=== PATIENT | male | born 1970 | race Caucasian/White ===

== ENCOUNTER 2018-06-09 09:38 | Emergency (ER) | payer BC ==
[2018-06-09] MEDS ORDERED: RABIES VACCINE 2.5 UNIT SYRINGE IM ONE (09:57)
--- NOTE | 2018-06-09 10:01 | ED Physician Documentation ---
History of Present Illness - Stated complaint Stated Complaint: RABIES VACCINATION - Chief complaint Chief Complaint: General - Additonal information Additional information: hx from pt healthy 48 male scratched by stray dog in [place] 06/02 was seen by medical there per paperwork level 2 exposure and rabies vaccine series was recommended he is here for dose 3 of ( Jun 02, , , and Jul 02) tdap UTD also has URI sx after plane travel - cough congestion, no leg swelling Review of Systems Constitutional: denies: Fever Ears: reports: Ear pain Nose: reports: Congestion Respiratory: reports: Cough Immunocompromised: denies: Immunocompromised PD PAST MEDICAL HISTORY - Present Medications Home Medications: Ambulatory Orders Medication Instructions Recorded Confirmed Benzonatate [Tessalon Perle] 100 mg PO TID PRN #20 capsule 06/09/18 Fluticasone [Flonase] 1 sprays MAYDA BID PRN #1 bottle 06/09/18 - Allergies Allergies/Adverse Reactions: Allergies Allergy/AdvReac Type Severity Reaction Status Date / Time No Known Drug Allergies Allergy Verified 06/09/18 09:45 PD ED PE NORMAL - Vitals Vital signs reviewed: Yes - General General: Alert and oriented X 3 - HEENT HEENT: Moist mucous membranes, Pharynx benign. No: Ears normal (fracisco TM tightly retracted, no purulent fluid) - Cardiac Cardiac: RRR - Respiratory Respiratory: No respiratory distress, Clear bilaterally - Abdomen Abdomen: Soft, Non tender - Derm Derm: Other (pt states the scratch has totally healed and there is nothing to see) - Extremities Extremities: No edema, No calf tenderness / cord - Neuro Neuro: Alert and oriented X 3 Results - Vitals Vitals: Vital Signs - 24 hr 06/09/18 09:45 Temperature 36.7 C Heart Rate 66 Respiratory 16 Rate Blood Pressure 123/86 H O2 Saturation 100 Oxygen O2 Source Room air Departure - Departure Disposition: 01 Home, Self Care Clinical Impression: Rabies, need for prophylactic vaccination against URI (upper respiratory infection) Qualifiers: URI type: unspecified viral URI Qualified Code(s): J06.9 - Acute upper respiratory infection, unspecified Condition: Good Instructions: Rabies Vaccine suspension for injection, ED URI Viral Prescriptions: Benzonatate [Tessalon Perle] 100 mg PO TID PRN #20 capsule PRN Reason: Cough Fluticasone [Flonase] 1 sprays MAYDA BID PRN #1 bottle PRN Reason: congestion Comments: Continue with the rabies series on 06/16 and 07/02 as planned
[2018-06-09 10:46] VITALS: BP 108/82
== END 2018-06-09 10:46 | disposition home or self-care (01) ==
LOC: ED 09:38
DX: Z29.14 Encounter for prophylactic rabies immune globulin (principal); Z20.3 Contact with and (suspected) exposure to rabies; J06.9 Acute upper respiratory infection, unspecified
CPT/HCPCS: 90471; 99283

== ENCOUNTER 2018-06-16 09:28 | Emergency (ER) | payer BC, OTHER ==
[2018-06-16] MEDS ORDERED: RABIES VACCINE 2.5 UNIT SYRINGE IM ONE (10:25)
--- NOTE | 2018-06-16 10:28 | ED Physician Documentation ---
PD HPI ANIMAL BITE - Stated complaint Stated Complaint: F/U RABIES - Chief complaint Chief Complaint: Ext Problem - History obtained from History obtained from: Patient - History of Present Illness Location of injury(ies): Other (he had prior dog bite in [place] and was at risk for rabies. Getting rabies vaccine series. He had been given info on 5 shot series from there. He is here for his 4th in the series.) Details of the event: Dog, Wild animal, Immunization unknown. No: Animal can be observed Timing - onset: How many weeks ago (2) Timing - details: Abrupt onset Recently seen: Emergency Dept (seen a week ago for 3rd rabies shot. returned for next one.) Review of Systems Constitutional: denies: Fever, Chills, Myalgias GI: denies: Nausea, Vomiting Neurologic: denies: Generalized weakness, Confused, Headache PD PAST MEDICAL HISTORY - Past Medical History Cardiovascular: None Respiratory: None Neuro: None Endocrine/Autoimmune: None - Past Surgical History Past Surgical History: Yes - Present Medications Home Medications: Ambulatory Orders Medication Instructions Recorded Confirmed Benzonatate [Tessalon Perle] 100 mg PO TID PRN #20 capsule 06/09/18 06/16/18 Fluticasone [Flonase] 1 sprays MAYDA BID PRN #1 bottle 06/09/18 06/16/18 - Allergies Allergies/Adverse Reactions: Allergies Allergy/AdvReac Type Severity Reaction Status Date / Time No Known Drug Allergies Allergy Verified 06/16/18 09:38 - Social History Does the pt smoke?: No Smoking Status: Never smoker PD ED PE NORMAL - Vitals Vital signs reviewed: Yes - General General: Alert and oriented X 3, No acute distress, Well developed/nourished Results - Vitals Vitals: Vital Signs - 24 hr 06/16/18 06/16/18 09:36 10:39 Temperature 36.6 C 36.3 C L Heart Rate 57 L 58 L Respiratory 18 20 Rate Blood Pressure 125/83 H 119/83 H O2 Saturation 100 100 Oxygen O2 Source Room air PD MEDICAL DECISION MAKING - ED course Complexity details: d/w patient (we discussed the CDC newest recommendations from couple years ago that has 4 shot series as the standard. So this would be his last vaccine in this series today and did not need anymore. ) Departure - Departure Disposition: Home, Self Care Clinical Impression: Rabies exposure, Need for immunization against rabies Condition: Stable Record reviewed to determine appropriate education?: Yes Comments: Following the current CDC rabies vaccine guidelines, they currently only suggest for vaccinations in the series and so this would be your last of them at this point. No further treatment needed. Follow-up as needed with your primary care. Discharge Date/Time: 06/16/18 10:42
[2018-06-16 10:41] VITALS: BP 119/83
== END 2018-06-16 10:42 | disposition home or self-care (01) ==
LOC: ED 09:28
DX: Z29.14 Encounter for prophylactic rabies immune globulin (principal); Z20.3 Contact with and (suspected) exposure to rabies
CPT/HCPCS: 90471; 99281; 99283

== ENCOUNTER 2023-07-28 02:38 | Emergency (ER) | payer BC, OTHER ==
[2023-07-28] MEDS: SOAP SUDS ENEMA 1 EACH RC ONE (03:38)
[2023-07-28] MEDS: MORPHINE 2 MG/ML CARPUJECT IVP STA (05:09)
[2023-07-28 05:10] LABS: BASOPHILS % (AUTO) 0.2 %; EOSINOPHILS % (AUTO) 0.2 %; HCT - HEMATOCRIT 40.9 % (42.0-52.0); LYMPHOCYTES # (AUTO) 1.7 10^3/uL (1.5-3.5); LYMPHOCYTES % (AUTO) 14.4 %; MEAN CORPUSCULAR HGB CONC 34.2 g/dL (32.0-36.0); MEAN CORPUSCULAR VOLUME 90.5 fL (80.0-94.0); MEAN PLATELET VOLUME 8.7 fL (7.4-11.4); MONOCYTES # (AUTO) 0.5 10^3/uL (0.0-1.0); MONOCYTES % (AUTO) 4.3 %; NEUTROPHILS # (AUTO) 9.2 10^3/uL (1.5-6.6); NEUTROPHILS % (AUTO) 80.6 %; PLT - PLATELET COUNT 235 10^3/uL (130-450); RED BLOOD COUNT 4.52 10^6/uL (4.70-6.10); RED CELL DISTRIBUTION WIDTH 12.2 % (12.0-15.0); WHITE BLOOD COUNT 11.5 x10^3/uL (4.8-10.8)
[2023-07-28 05:24] LABS: ALBUMIN 4.6 g/dL (3.2-5.5); ALBUMIN/GLOBULIN RATIO 1.7 (1.0-2.2); BILIRUBIN,TOTAL 0.5 mg/dL (0.2-1.0); CALCIUM 9.7 mg/dL (8.5-10.3); CREATININE 0.9 mg/dL (0.6-1.3); POTASSIUM 3.8 mmol/L (3.5-4.5); TOTAL PROTEIN 7.3 g/dL (6.4-8.9)
[2023-07-28] MEDS ORDERED: IOVERSOL 320 100 ML VIAL IVP ONE (05:29)
--- NOTE | 2023-07-28 05:29 | ED Physician Documentation ---
PD HPI ABD PAIN - Stated complaint Stated Complaint: ABD PX - Chief complaint Chief Complaint: Abd Pain - History obtained from History obtained from: Patient - Additional information Additional information: Patient is a 53-year-old male with no significant past medical history presenting for evaluation of feeling some lower abdominal discomfort and constipation. Patient states he has not had a bowel movement in about 4 days. He tried an [id number] enema this evening without any improvement and reports having some lower abdominal sharp cramping pain. He did have some loose watery stool but no significant stool output. No nausea or vomiting. No fever. Denies history of abdominal surgeries. Has had intermittent issues with constipation in the past.Denies dysuria. No blood in the stools. Has had colonoscopies in the past. Review of Systems Constitutional: denies: Fever Cardiac: denies: Chest pain / pressure Respiratory: denies: Dyspnea GI: reports: Abdominal Pain, Constipation. denies: Nausea, Vomiting, Bloody / black stool : denies: Dysuria Musculoskeletal: denies: Back pain PD PAST MEDICAL HISTORY - Past Medical History Past Medical History: No Cardiovascular: None Respiratory: None Neuro: None Endocrine/Autoimmune: None - Past Surgical History Past Surgical History: Yes General: Appendectomy - Present Medications Home Medications: Ambulatory Orders Medication Instructions Recorded Confirmed Tamsulosin [Flomax] 0.4 mg PO DAILY #14 cap 07/28/23 - Allergies Allergies/Adverse Reactions: Allergies Allergy/AdvReac Type Severity Reaction Status Date / Time No Known Drug Allergies Allergy Verified 07/28/23 02:50 - Social History Does the pt smoke?: No Smoking Status: Never smoker Does the pt drink ETOH?: No Does the pt have substance abuse?: No PD ED PE NORMAL - General General: Alert and oriented X 3, No acute distress, Well developed/nourished - HEENT HEENT: Atraumatic, Moist mucous membranes, Pharynx benign - Neck Neck: Supple, no meningeal sign - Cardiac Cardiac: RRR, Strong equal pulses - Respiratory Respiratory: No respiratory distress, Clear bilaterally - Abdomen Abdomen: Normal bowel sounds, Soft, Non tender, Other - 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), Other (No testicular tenderness/swelling) - Rectal 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; 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; soft solid stool in rectum; normal stool color) Results - Vitals Vitals: Vital Signs - 24 hr 07/28/23 07/28/23 07/28/23 02:46 06:29 08:04 Temperature 36.4 C L Heart Rate 70 76 60 Respiratory 17 16 18 Rate Blood Pressure 122/85 H 111/73 117/77 O2 Saturation 100 98 100 Oxygen O2 Source Room air - Labs Labs: Laboratory Tests 07/28/23 07/28/23 07/28/23 05:07 05:07 06:00 WBC 11.5 H RBC 4.52 L Hgb 14.0 Hct 40.9 L MCV 90.5 MCH 31.0 MCHC 34.2 RDW 12.2 Plt Count 235 MPV 8.7 Neut # (Auto) 9.2 H Lymph # (Auto) 1.7 Reagan # (Auto) 0.5 Eos # (Auto) 0.0 Baso # (Auto) 0.0 Absolute Nucleated RBC 0.00 Nucleated RBC % 0.0 Sodium 138 Potassium 3.8 Chloride 105 Carbon Dioxide 26 Anion Gap 7.0 BUN 12 Creatinine 0.9 Estimated GFR (MDRD) 89 Glucose 134 H Calcium 9.7 Total Bilirubin 0.5 AST 35 ALT 40 Alkaline Phosphatase 58 Total Protein 7.3 Albumin 4.6 Globulin 2.7 Albumin/Globulin Ratio 1.7 Lipase 33 Urine Color YELLOW Urine Clarity CLEAR Urine pH 6.0 Ur Specific Mathews 1.015 Urine Protein NEGATIVE Urine Glucose (UA) NEGATIVE Urine Ketones NEGATIVE Urine Occult Blood NEGATIVE Urine Nitrite NEGATIVE Urine Bilirubin NEGATIVE Urine Urobilinogen 0.2 (NORMAL) Ur Leukocyte Esterase NEGATIVE Ur Microscopic Review NOT INDICATED Urine Culture Comments NOT INDICATED PD Medical Decision Making - ED course Complexity details: reviewed results, re-evaluated patient, d/w patient, d/w family ED course: Pt is a 53 yo M presenting for evaluation of constipation. Tried enema at home without improvement. Soft solid stool in rectum on exam. Soap suds enema here with no significant output and pt reporting increased abdominal pain. Now with lower abdominal tenderness so labs and imaging obtained. No significant findings on labs. Pain controlled with IV morphine and dilaudid. CT findings of fecal impaction as well as distended bladder. On further discussion, pt admits to recently having issues with urination. Has been busy at home with twin 9 months olds and reports decreased toileting. Bladder scan with 1400ml. Recommend davila catheter which pt agreeable to and then plan for mineral enema. Hope is that pt will be able to relieve fecal impaction once bladder is decompressed. Pt gave permission for me to update his partner who is a former hospitalist here via telephone. Pt signed out to Dr. Henning at shift change pending re-evaluation after davila and enema. Departure - Departure Clinical Impression: Fecal impaction, Urinary retention Condition: Stable Instructions: ED Constipation, ED Retention Urinary Male Follow-Up: Grover Carreno MD [Provider Admit Priv/Credential] - Within 1 week (For catheter removal) Prescriptions: Tamsulosin [Flomax] 0.4 mg PO DAILY #14 cap Comments: You were found to have urinary retention which is the situation that occurs when your bladder is not emptying fully on its own. I suspect that this was causing your pain as well as leading to difficulties with having a bowel movement. We have placed a catheter which is taken for approximately 1 week. Please follow- up with Dr. Grover Carreno who is a local urologist later this week to have the catheter removed. In the meanwhile have sent a prescription for Flomax which is a medication that will help the bladder recover to [facility] in [place]. Forms: PCP List
[2023-07-28] MEDS: IOVERSOL 320 100 ML VIAL IVP ONE (06:02)
[2023-07-28] MEDS: HYDROmorphone 1 MG/ML CARPUJECT IVP STA (06:18)
[2023-07-28 06:39] LABS: BILIRUBIN,URINE NEGATIVE (NEGATIVE); GLUCOSE, URINE (UA) NEGATIVE (NEGATIVE); KETONES,URINE (UA) NEGATIVE (NEGATIVE); LEUKOCYTE ESTERASE, URINE NEGATIVE (NEGATIVE); NITRITE,URINE NEGATIVE (NEGATIVE); OCCULT BLOOD,URINE NEGATIVE (NEGATIVE); PROTEIN,URINE NEGATIVE (NEGATIVE); UROBILINOGEN,URINE 0.2 (NORMAL) E.U./dL (NORMAL)
[2023-07-28 06:40] LABS: CLARITY,URINE CLEAR (CLEAR)
[2023-07-28] MEDS: MINERAL OIL ENEMA 133 ML BOTTLE RC STA (07:52)
[2023-07-28 08:11] VITALS: O2SAT 100
[2023-07-28] MEDS: DOCUSATE SODIUM 100 MG CAPSULE PO STA (08:15)
[2023-07-28] MEDS: LACTULOSE 10 GM /15 ML UDC PO STA (08:15)
--- NOTE | 2023-07-28 08:39 | CT Report ---
PROCEDURE: Abdomen/Pelvis W INDICATIONS: lower abd pain CONTRAST: 100 ML OPTI 320 TECHNIQUE: After the administration of intravenous contrast, a CT scan of the abdomen and pelvis was performed. Images were recorded and evaluated at appropriate window settings. Reformats: coronal and sagittal. F or radiation dose reduction, the following was used: automated exposure control, adjustment of mA and /or kV according to patient size. COMPARISON: None. FINDINGS: Image quality: Diagnostic. Lower chest: Unremarkable. Liver: Hepatic steatosis. Gallbladder and biliary tree: No radiopaque stones or wall thickening. No biliary dilation. Spleen: No splenomegaly. Pancreas: No pancreatic ductal dilation. Adrenals: No adrenal nodule. Kidneys and ureters: No hydronephrosis. No renal cystic lesion which requires follow up. No solid mas s. Minimal prominence of the bilateral renal pelvises. Stomach, bowel and peritoneum: There is a large amount of fecal material noted in the rectum. Large a mount of fecal material seen scattered throughout the colon. There is circumferential narrowing at th e rectosigmoid junction. No evidence for small bowel obstruction. Appendix is not visualized but no s econdary findings for acute appendicitis. Lymph nodes: No central or retroperitoneal adenopathy. Vessels: No infrarenal aortic aneurysm. Scattered atherosclerotic calcifications. PELVIS Reproductive organs: Unremarkable. Bladder: There is marked distention of the urinary bladder without wall thickening or perivesicular i nflammation. No evidence to suggest intraluminal mass or stone. Pelvic lymph nodes: No pelvic adenopathy by size criteria. Bones: No aggressive osseous abnormality. No acute compression fracture. Other: No significant ventral or inguinal hernia. IMPRESSION: Findings consistent with fecal impaction. There is circumferential narrowing of the proximal rectum n ear the rectosigmoid junction which may represent proctitis. Recommend correlation with digital recta l examination/physical exam to exclude possible underlying mass. Additionally, large amount of fecal material seen throughout the colon consistent with constipation. Marked urinary bladder distention without evidence for obstructive uropathy. No significant discrepancy with initial interpretation by overnight radiologist. Reviewed by: Mahendra Nicholson MD on 07/28/2023 8:38 AM [facility] Approved by: Mahendra Nicholson MD on 07/28/2023 8:38 AM PST Station ID: [id number]
--- NOTE | 2023-07-28 08:51 | ED Physician Documentation ---
ED Addendum - Addendum Addendum: 07/28/23 08:48 The patient had the Rivera catheter placed and had 1500 mL of urine out. He was having less cramping pain in the lower abdomen. He did not have much of a stool out after that. He was given a repeat enema. The prior provider had said the rectal exam showed some stool that was soft in the vault. I did not repeat the rectal exam. I did give some oral stool softener and laxative to complement the enema. At this point would keep working on stool softening and output but can be continued at home. The majority of symptoms were likely of the stretching of the bladder and this should be improved. The instructions written for him I would concur with and that would keep the Rivera catheter in for more like a week as the bladder would have gotten over distended and the muscle stretched and he needs time to regain tone. Following up with urology would be appropriate. We can add a daily stool softener in addition to the prescribed Flomax. Disposition: The patient discharged home in stable condition. Diagnoses: 1. Lower abdominal pain/cramping 2. Constipation with fecal impaction 3. Urinary retention acute with distended bladder
[2023-07-28 09:50] VITALS: BP 111/75
== END 2023-07-28 09:42 | disposition home or self-care (01) ==
LOC: ED 02:38
DX: K56.41 Fecal impaction (principal); R33.9 Retention of urine, unspecified
CPT/HCPCS: 36415; 51702; 51798; 74177; 80053; 81003; 83690; 85025; 96374; 96375; 99284; A9270; J1170; Q9967; 81001; 87086

== ENCOUNTER 2023-08-04 12:48 | Emergency (ER) | payer BC, OTHER ==
[2023-08-04 13:06] VITALS: O2SAT 98
[2023-08-04 13:15] LABS: BILIRUBIN,URINE NEGATIVE (NEGATIVE); GLUCOSE, URINE (UA) NEGATIVE (NEGATIVE); KETONES,URINE (UA) 40 mg/dL (NEGATIVE); LEUKOCYTE ESTERASE, URINE MODERATE (NEGATIVE); NITRITE,URINE NEGATIVE (NEGATIVE); OCCULT BLOOD,URINE SMALL (NEGATIVE); PROTEIN,URINE TRACE mg/dL (NEGATIVE); UROBILINOGEN,URINE 1 (NORMAL) E.U./dL (NORMAL)
[2023-08-04 13:17] LABS: CLARITY,URINE SL. CLOUDY (CLEAR)
[2023-08-04 13:21] LABS: BACTERIA,URINE Moderate /HPF (None Seen); SQUAMOUS EPITHELIAL CELL,UR RARE Squamous (<= Few); WBC,URINE >25 /HPF (0-3)
[2023-08-04 13:29] LABS: BASOPHILS % (AUTO) 0.2 %; EOSINOPHILS # (AUTO) 0.1 10^3/uL (0.0-0.7); EOSINOPHILS % (AUTO) 0.8 %; HGB - HEMOGLOBIN 13.2 g/dL (14.0-18.0); LYMPHOCYTES # (AUTO) 0.6 10^3/uL (1.5-3.5); LYMPHOCYTES % (AUTO) 5.1 %; MEAN CORPUSCULAR HEMOGLOBIN 32.5 pg (27.0-31.0); MEAN CORPUSCULAR HGB CONC 35.7 g/dL (32.0-36.0); MEAN CORPUSCULAR VOLUME 91.1 fL (80.0-94.0); MEAN PLATELET VOLUME 8.7 fL (7.4-11.4); MONOCYTES # (AUTO) 0.8 10^3/uL (0.0-1.0); MONOCYTES % (AUTO) 6.3 %; NEUTROPHILS # (AUTO) 10.9 10^3/uL (1.5-6.6); NEUTROPHILS % (AUTO) 87.2 %; PLT - PLATELET COUNT 183 10^3/uL (130-450); RED BLOOD COUNT 4.06 10^6/uL (4.70-6.10); RED CELL DISTRIBUTION WIDTH 12.3 % (12.0-15.0); WHITE BLOOD COUNT 12.5 x10^3/uL (4.8-10.8)
[2023-08-04 13:42] LABS: ALBUMIN/GLOBULIN RATIO 1.4 (1.0-2.2); BILIRUBIN,TOTAL 1.4 mg/dL (0.2-1.0); CALCIUM 9.8 mg/dL (8.5-10.3); CREATININE 1.1 mg/dL (0.6-1.3); POTASSIUM 3.9 mmol/L (3.5-4.5); TOTAL PROTEIN 6.9 g/dL (6.4-8.9)
--- NOTE | 2023-08-04 14:01 | ED Physician Documentation ---
History of Present Illness - Stated complaint Stated Complaint: FEVER/NAUSEA - Chief complaint Chief Complaint: Abd Pain - History obtained from History obtained from: Patient - History of Present Illness Pain level max: 3 Pain level now: 3 - Additonal information Additional information: 53-year-old male presents to the emergency department with fever, body aches for the past 24 hours. He states that he was seen here about a week ago, had urinary retention secondary to fecal impaction. A Rivera catheter was placed. He states he was supposed to have the catheter removed a few days ago but there were no appointments available. Has not had any diarrhea. Mild nausea. No vomiting. No cough or congestion. Nothing makes it better or worse. No recent antibiotics. Review of Systems Constitutional: denies: Fever, Chills Nose: denies: Rhinorrhea / runny nose, Congestion Throat: denies: Sore throat Cardiac: denies: Chest pain / pressure Respiratory: denies: Cough GI: reports: Nausea. denies: Vomiting, Diarrhea, Hematemesis, Bloody / black stool Skin: denies: Rash Musculoskeletal: denies: Neck pain, Back pain Neurologic: denies: Headache PD PAST MEDICAL HISTORY - Past Medical History Cardiovascular: None Respiratory: None Neuro: None Endocrine/Autoimmune: None - Past Surgical History Past Surgical History: Yes General: Appendectomy - Present Medications Home Medications: Ambulatory Orders Medication Instructions Recorded Confirmed Docusate Sodium 100Mg Capsule 100 mg PO DAILY #20 cap 07/28/23 08/04/23 [Colace 100Mg Capsule] Tamsulosin [Flomax] 0.4 mg PO DAILY #14 cap 07/28/23 08/04/23 Cefpodoxime Proxetil [Vantin] 100 mg PO Q12H #20 tablet 08/04/23 - Allergies Allergies/Adverse Reactions: Allergies Allergy/AdvReac Type Severity Reaction Status Date / Time No Known Drug Allergies Allergy Verified 08/04/23 13:00 - Social History Does the pt smoke?: No Smoking Status: Never smoker Does the pt drink ETOH?: No Does the pt have substance abuse?: No PD ED PE NORMAL - Vitals Vital signs reviewed: Yes - General General: Alert and oriented X 3, No acute distress - HEENT HEENT: PERRL, Moist mucous membranes - Neck Neck: Supple, no meningeal sign - Cardiac Cardiac: RRR, Strong equal pulses - Respiratory Respiratory: No respiratory distress, Clear bilaterally - Abdomen Abdomen: Soft, Non tender, Non distended - Back Back: No CVA TTP, No spinal TTP - Derm Derm: Warm and dry - Extremities Extremities: No edema - Neuro Neuro: Alert and oriented X 3 - Psych Psych: Normal mood, Normal affect Results - Vitals Vitals: Vital Signs - 24 hr 08/04/23 08/04/23 08/04/23 12:55 15:00 16:42 Temperature 38 C H Heart Rate 103 H 76 68 Respiratory 16 16 16 Rate Blood Pressure 112/63 93/69 102/57 L O2 Saturation 98 98 98 Oxygen O2 Source Room air - Labs Labs: Laboratory Tests 08/04/23 08/04/23 08/04/23 13:04 13:25 13:25 WBC 12.5 H RBC 4.06 L Hgb 13.2 L Hct 37.0 L MCV 91.1 MCH 32.5 H MCHC 35.7 RDW 12.3 Plt Count 183 MPV 8.7 Neut # (Auto) 10.9 H Lymph # (Auto) 0.6 L Sac # (Auto) 0.8 Eos # (Auto) 0.1 Baso # (Auto) 0.0 Absolute Nucleated RBC 0.00 Nucleated RBC % 0.0 Sodium 135 Potassium 3.9 Chloride 101 Carbon Dioxide 27 Anion Gap 7.0 BUN 17 Creatinine 1.1 Estimated GFR (MDRD) 70 L Glucose 134 H Calcium 9.8 Total Bilirubin 1.4 H AST 16 ALT 20 Alkaline Phosphatase 64 Total Protein 6.9 Albumin 4.0 Globulin 2.9 Albumin/Globulin Ratio 1.4 Lipase 15 Urine Color YELLOW Urine Clarity SL. CLOUDY Urine pH 7.0 Ur Specific [place] 1.020 Urine Protein TRACE Urine Glucose (UA) NEGATIVE Urine Ketones 40 H Urine Occult Blood SMALL H Urine Nitrite NEGATIVE Urine Bilirubin NEGATIVE Urine Urobilinogen 1 (NORMAL) Ur Leukocyte Esterase MODERATE H Urine RBC 11-25 H Urine WBC >25 H Ur Squamous Epith Cells RARE Squamous Urine Bacteria Moderate H Ur Microscopic Review INDICATED Urine Culture Comments INDICATED Nasal Adenovirus (PCR) Nasal B. parapertussis DNA (PCR) Nasal Coronavir 229E PCR Nasal Coronavir HKU1 PCR Nasal Coronavir NL63 PCR Nasal Coronavir OC43 PCR Nasal Enterovir/Rhinovir PCR Nasal Influenza B PCR Nasal Influenza A PCR Nasal Parainfluen 1 PCR Nasal Parainfluen 2 PCR Nasal Parainfluen 3 PCR Nasal Parainfluen 4 PCR Nasal RSV (PCR) Nasal B.pertussis DNA PCR Nasal C.pneumoniae (PCR) Lawrence Human Metapneumo PCR Nasal M.pneumoniae (PCR) Nasal SARS-CoV-2 (PCR) 08/04/23 13:45 WBC RBC Hgb Hct MCV MCH MCHC RDW Plt Count MPV Neut # (Auto) Lymph # (Auto) Sac # (Auto) Eos # (Auto) Baso # (Auto) Absolute Nucleated RBC Nucleated RBC % Sodium Potassium Chloride Carbon Dioxide Anion Gap BUN Creatinine Estimated GFR (MDRD) Glucose Calcium Total Bilirubin AST ALT Alkaline Phosphatase Total Protein Albumin Globulin Albumin/Globulin Ratio Lipase Urine Color Urine Clarity Urine pH Ur Specific [place] Urine Protein Urine Glucose (UA) Urine Ketones Urine Occult Blood Urine Nitrite Urine Bilirubin Urine Urobilinogen Ur Leukocyte Esterase Urine RBC Urine WBC Ur Squamous Epith Cells Urine Bacteria Ur Microscopic Review Urine Culture Comments Nasal Adenovirus (PCR) NOT DETECTED Nasal B. parapertussis DNA (PCR) NOT DETECTED Nasal Coronavir 229E PCR NOT DETECTED Nasal Coronavir HKU1 PCR NOT DETECTED Nasal Coronavir NL63 PCR NOT DETECTED Nasal Coronavir OC43 PCR NOT DETECTED Nasal Enterovir/Rhinovir PCR NOT DETECTED Nasal Influenza B PCR NOT DETECTED Nasal Influenza A PCR NOT DETECTED Nasal Parainfluen 1 PCR NOT DETECTED Nasal Parainfluen 2 PCR NOT DETECTED Nasal Parainfluen 3 PCR NOT DETECTED Nasal Parainfluen 4 PCR NOT DETECTED Nasal RSV (PCR) NOT DETECTED Nasal B.pertussis DNA PCR NOT DETECTED Nasal C.pneumoniae (PCR) NOT DETECTED Lawrence Human Metapneumo PCR NOT DETECTED Nasal M.pneumoniae (PCR) NOT DETECTED Nasal SARS-CoV-2 (PCR) NOT DETECTED PD Medical Decision Making - ED course Complexity details: reviewed results, re-evaluated patient, considered differential, d/w patient, d/w family ED course: The patient's Rivera catheter was removed. He is able to void without difficulty. Given IV fluids. White blood cell count is mildly elevated. Patient feels much better after Rocephin and IV fluids. Tolerating p.o. and ambulating without difficulty. Heart rate decreased, no evidence of sepsis at this time. Will place on oral antibiotics for home. Abdomen is soft, nontender nondistended on serial exam. Patient counseled regarding signs and symptoms for which I believe and urgent re-evaluation would be necessary. Patient with good understanding of and agreement to plan and is comfortable going home at this time This document was made in part using voice recognition software. While efforts are made to proofread this document, sound alike and grammatical errors may occur. Departure - Departure Disposition: Home, Self Care Clinical Impression: UTI (urinary tract infection) Qualifiers: Urinary tract infection type: acute cystitis Hematuria presence: without hematuria Qualified Code(s): N30.00 - Acute cystitis without hematuria Condition: Good Instructions: ED UTI Cystitis Male Follow-Up: Jason Austin MD [Primary Care Provider] - Within 1 week Prescriptions: Cefpodoxime Proxetil [Vantin] 100 mg PO Q12H #20 tablet Comments: Your prescription was sent to [facility] in [place]. Your Rivera catheter was removed today. Make sure you are drinking plenty of fluids at home. Take all antibiotics until gone. You were given a dose of IV antibiotic today. Please return if you are not improving in the next 24 to 48 hours or if you feel like you are worsening. Forms: PCP List Discharge Date/Time: 08/04/23 16:53
[2023-08-04] MEDS: cefTRIAXone 1 GM VIAL IVP STA (14:11)
[2023-08-04] MEDS: SODIUM CHLORIDE 0.9% 1,000 ML IV STA ×2 (14:12→15:58)
[2023-08-04 14:55] LABS: B. PARAPERTUSSIS- RESP PCR PAN NOT DETECTED; B. PERTUSSIS- RESP PCR PANEL NOT DETECTED; C. PNEUMONIAE- RESP PCR PANEL NOT DETECTED; CORONAVIRUS 229E-RESP PCR NOT DETECTED; CORONAVIRUS HKU1-RESP PCR NOT DETECTED; CORONAVIRUS NL63-RESP PCR NOT DETECTED; CORONAVIRUS OC43-RESP PCR NOT DETECTED; HUMAN METAPNEUMOVIRUS NOT DETECTED; INFLUENZA A- RESP PCR PANEL NOT DETECTED; INFLUENZA B - RESP PCR PANEL NOT DETECTED; M. PNEUMONIAE- RESP PCR PANEL NOT DETECTED; PARAINFLUENZA VIRUS 1 NOT DETECTED; PARAINFLUENZA VIRUS 2 NOT DETECTED; PARAINFLUENZA VIRUS 3 NOT DETECTED; PARAINFLUENZA VIRUS 4 NOT DETECTED; RHINOVIRUS/ENTEROVIRUS NOT DETECTED; RSV- RESP PCR PANEL NOT DETECTED; SARS-CoV-2 -RESP PCR PANEL NOT DETECTED
[2023-08-04 16:45] VITALS: BP 102/57
== END 2023-08-04 16:53 | disposition home or self-care (01) ==
LOC: ED 12:48
DX: T83.518A Infection and inflammatory reaction due to other urinary catheter, initial encounter (principal); N30.00 Acute cystitis without hematuria; Z11.52 Encounter for screening for COVID-19
CPT/HCPCS: 36415; 80053; 81001; 81003; 83690; 85025; 87077; 87086; 87181; 87633; 96361; 96374; 99283

== ENCOUNTER 2023-09-13 08:00 | Outpatient (CLI) | payer BC ==
[2023-09-13 16:19] LABS: BILIRUBIN,URINE NEGATIVE (NEGATIVE); GLUCOSE, URINE (UA) NEGATIVE (NEGATIVE); KETONES,URINE (UA) NEGATIVE (NEGATIVE); LEUKOCYTE ESTERASE, URINE SMALL (NEGATIVE); NITRITE,URINE NEGATIVE (NEGATIVE); OCCULT BLOOD,URINE TRACE-INTA (NEGATIVE); PH,URINE 5.5 PH (5.0-7.5); PROTEIN,URINE NEGATIVE (NEGATIVE); UROBILINOGEN,URINE 0.2 (NORMAL) E.U./dL (NORMAL)
[2023-09-13 16:23] LABS: CLARITY,URINE CLEAR (CLEAR)
[2023-09-13 16:29] LABS: BACTERIA,URINE Few /HPF (None Seen); RBC,URINE 0-5 /HPF (0-5); SQUAMOUS EPITHELIAL CELL,UR NONE SEEN (<= Few); WBC,URINE >25 /HPF (0-3)
== END 2023-09-13 23:59 | disposition home or self-care (01) ==
LOC: LAB.R 08:00
PROVIDERS: ATTEND Urology
DX: R31.9 Hematuria, unspecified (principal)
CPT/HCPCS: 81001; 87086; 87181

== ENCOUNTER 2023-10-24 09:05 | Outpatient (CLI) | payer BC | END 2023-10-24 09:06 | disposition home or self-care (01) | LOC: LAB 09:05 | PROVIDERS: ATTEND Urology | DX: R97.20 Elevated prostate specific antigen [PSA] (principal) | CPT/HCPCS: 36415; 84153 ==